=== PATIENT | female | born 2000 | race Caucasian/White ===

== ENCOUNTER 2021-06-10 12:28 | Emergency (ER) | payer SELFPAY ==
[~2021-06-10] VITALS: Ht 167.6 cm; Wt 55.0 kg
[2021-06-10] MEDS ORDERED: IBUPROFEN 800MG TABLET PO ONE (12:45)
[2021-06-10] MEDS ORDERED: IBUPROFEN 600MG TABLET PO ONE (13:15)
[2021-06-10 13:30] VITALS: BP 113/71
[2021-06-10] MEDS ORDERED: DIAZEPAM 5 MG TABLET PO ONE (14:30)
[2021-06-10] MEDS ORDERED: DIAZEPAM 5 MG TABLET PO NR (15:00)
[2021-06-10] MEDS ORDERED: IBUP-2029 MT (15:22)
[2021-06-10] MEDS ORDERED: METH-773 MT (15:22)
== END 2021-06-10 15:35 | disposition home or self-care (01) ==
LOC: ER 12:28
DX: S09.8XXA Other specified injuries of head, initial encounter (principal); M54.2 Cervicalgia; M54.6 Pain in thoracic spine; V49.59XA Passenger injured in collision with other motor vehicles in traffic accident, initial encounter; Y93.89 Activity, other specified; Y92.488 Other paved roadways as the place of occurrence of the external cause
CPT/HCPCS: 72070; 99284